=== PATIENT | female | born 1965 | race Caucasian/White ===

== ENCOUNTER → 2018-07-08 | Outpatient (CLI) | payer OTHER | END | disposition home or self-care (01) | LOC: CFH 09:12 | PROVIDERS: ATTEND Family Medicine | DX: Z12.31 Encounter for screening mammogram for malignant neoplasm of breast (principal); R10.2 Pelvic and perineal pain; Z80.41 Family history of malignant neoplasm of ovary | CPT/HCPCS: 76830; 77067 ==

== ENCOUNTER 2021-08-06 15:36 | Outpatient (CLI) | payer OTHER | END 2021-08-06 23:59 | disposition home or self-care (01) | LOC: CVU 15:36 | PROVIDERS: ATTEND Internal Medicine Clinical Cardiac Electrophysiology | DX: R01.1 Cardiac murmur, unspecified (principal) | CPT/HCPCS: 93306; 93356 ==